=== PATIENT | male | born 1985 | race Hispanic/Latino ===

== ENCOUNTER 2017-05-19 22:52 | Emergency (ER) | payer BC, OTHER ==
[2017-05-20 00:01] LABS: BASO % 0.4 % (0.0-2.0); EOS # 0.2 K/uL (0.0-0.7); EOS % 2.6 % (0.0-4.0); HEMATOCRIT 42.4 % (35.0-51.0); LYMPH # 1.9 K/uL (1.0-4.3); LYMPH % 24.4 % (20.0-40.0); MEAN CELL VOLUME 94.6 fl (80.0-94.0); MEAN CORPUSCULAR HEMOGLOBIN 32.5 pg (27.0-31.0); MEAN CORPUSCULAR HGB CONC 34.3 g/dL (33.0-37.0); MEAN PLATELET VOLUME 7.9 fl (7.2-11.7); MONO # 0.7 K/uL (0.0-0.8); MONO % 8.8 % (0.0-10.0); NEUT % 63.8 % (50.0-75.0); NRBC % 2.3 % (0.0-0.0); RED CELL DISTRIBUTION WIDTH 12.6 % (11.5-14.5); WHITE BLOOD COUNT 7.9 K/uL (4.8-10.8)
[2017-05-20 00:03] VITALS: RESP 17
[2017-05-20 00:10] LABS: ALB/GLOB RATIO 1.3 (1.0-2.1); BILIRUBIN,TOTAL 0.5 mg/dl (0.2-1.3); CALCIUM 9.1 mg/dL (8.4-10.2); CARBON DIOXIDE 22 mmol/L (22-30); CHLORIDE 107 mmol/L (98-107); GFR AFRICAN-AMERICAN > 60; GLUCOSE,RANDOM 95 mg/dL (75-110); SODIUM 141 mmol/l (132-148); TOTAL PROTEIN 8.4 G/DL (6.3-8.2)
[2017-05-20 00:20] LABS: ALKALINE PHOSPHATASE 63 U/L (38-126); ALT/SGPT 63 U/L (21-72); AST/SGOT 42 U/L (17-59); BLOOD UREA NITROGEN 18 mg/dl (9-20); POTASSIUM 3.9 MMOL/L (3.6-5.0)
[2017-05-20] MEDS ORDERED: Iodixanol 320 MG/ML 100 ML BOTTLE IV ONE (00:41)
--- NOTE | 2017-05-20 02:01 | ED PDOC ---
HPI: SOB/CHF/COPD Time Seen by Provider: 05/19/17 22:56 Chief Complaint (Nursing): Shortness Of Breath Chief Complaint (Provider): SOB, difficulty breathing out x 2 months History Per: Patient History/Exam Limitations: no limitations Onset/Duration Of Symptoms: Days, Waxing/Waning Current Symptoms Are (Timing): Still Present Quality: Tightness Current Respiratory Medications: Albuterol (Tooke for 2 weeks, did not help ) Associated Symptoms: denies: Fever, Chills, Sweating, Chest Pain, Productive Cough, Dizziness Additional Complaint(s): Pt was seen by PMD and given albuterol for 2 weeks which did not help. PT had CBC, CMP, DDIMER, HIV, Lyme and Hepatitis labs which were all normal. PT also with normal EKG and CXR. 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 Past Medical History Reviewed: Historical Data, Nursing Documentation, Vital Signs Vital Signs: Last Vital Signs Temp 98.3 F 05/19/17 23:03 Pulse 75 05/19/17 23:03 Resp 17 05/19/17 23:35 BP 152/99 H 05/19/17 23:03 Pulse Ox 98 05/19/17 23:35 - Medical History PMH: No Chronic Diseases - Surgical History Surgical History: No Surg Hx - Family History Family History: States: Unknown Family Hx - Living Arrangements Living Arrangements: With Family - Social History Current smoker - smoking cessation education provided: No - Home Medications Home Medications: Ambulatory Orders Medication Instructions Recorded Ibuprofen [Motrin] 600 mg PO Q6 PRN #20 tab 09/03/14 Oxycodone HCl/Acetaminophen 1 tab PO Q4 #10 tab 09/03/14 [Percocet 325 mg-5 mg] Oxycodone HCl/Acetaminophen 1 tab PO Q4 #10 tab 09/03/14 [Percocet 325 mg-5 mg] diaZEpam [Valium] 5 mg PO BID PRN #10 tab 09/03/14 Oxycodone HCl/Acetaminophen 1 tab PO Q6H PRN #10 tab 09/06/14 [Percocet 325 mg-5 mg] - Allergies Allergies/Adverse Reactions: Allergies Allergy/AdvReac Type Severity Reaction Status Date / Time No Known Allergies Allergy Verified 09/03/14 15:12 Review of Systems ROS Statement: Except As Marked, All Systems Reviewed And Found Negative Constitutional: Negative for: Fever, Chills Respiratory: Positive for: Shortness of Breath Gastrointestinal: Negative for: Nausea, Vomiting, Abdominal Pain Genitourinary Male: Negative for: Dysuria Musculoskeletal: Negative for: Neck Pain Physical Exam - Reviewed Nursing Documentation Reviewed: Yes Vital Signs Reviewed: Yes - Physical Exam Appears: Positive for: Well, Non-toxic, No Acute Distress Head Exam: Positive for: ATRAUMATIC, NORMAL INSPECTION, NORMOCEPHALIC Skin: Positive for: Normal Color, Warm, DRY Eye Exam: Positive for: Normal appearance ENT: Positive for: Normal ENT Inspection Neck: Positive for: Normal, Painless ROM Cardiovascular/Chest: Positive for: Regular Rate, Rhythm Respiratory: Positive for: CNT, Normal Breath Sounds Back: Positive for: Normal Inspection Extremity: Positive for: Normal ROM Neurologic/Psych: Positive for: Alert, Oriented - Laboratory Results Result Diagrams: 05/19/17 23:30 05/19/17 23:30 - ECG O2 Sat by Pulse Oximetry: 98 Disposition - Clinical Impression Clinical Impression: Dyspnea - Disposition Referrals: [facility] [Outside] Jos Villa MD [Staff Provider] - Disposition: Routine/Home Disposition Time: 02:03 Condition: STABLE Instructions: Dyspnea (ED)
[2017-05-20 02:44] VITALS: BP 134/80; PULSE 67; TEMP 98.1; O2SAT 97
--- NOTE | 2017-05-20 05:42 | CT ---
PROCEDURE: CT Chest with contrast (Pulmonary Angiogram) HISTORY: SOB COMPARISON: None available. TECHNIQUE: Axial computed tomography images were obtained of the chest in the pulmonary arterial phase of enhancement. Coronal and sagittal reformatted images were created and reviewed. Intravenous contrast dose: 95 cc Visipaque 320 Radiation dose: Total exam DLP = 434.55 mGy-cm. This CT exam was performed using one or more of the following dose reduction techniques: Automated exposure control, adjustment of the mA and/or kV according to patient size, and/or use of iterative reconstruction technique. FINDINGS: PULMONARY ARTERIES: Unremarkable. No pulmonary embolism. AORTA: No acute findings. No thoracic aortic aneurysm. LUNGS: Unremarkable. No nodule, mass or pulmonary consolidation. PLEURAL SPACES: Unremarkable. No effusion or pneuomothorax. HEART: Unremarkable. No cardiomegaly. No significant pericardial effusion. LYMPH NODES: No lymphadenopathy. BONES, CHEST WALL: Unremarkable. No fracture or destructive lesion OTHER FINDINGS: Unremarkable. IMPRESSION: Unremarkable CT pulmonary angiogram. No pulmonary embolus. Concordant results (preliminary interpretation) provided by [employer]. Procedure Completed: 00:50. Preliminary ([employer]) Report: Dictated and Authenticated: 01:24 Final Interpretation: 05:40. May 20, 2017. 00:51.
--- NOTE | 2017-05-20 12:05 | CARD ---
APPROVED REPORT EKG Measurement Heart [id number] <Conclusion> Normal sinus rhythm Normal ECG
== END 2017-05-20 02:55 | disposition home or self-care (01) ==
LOC: H.ER 22:52
DX: R06.00 Dyspnea, unspecified (principal)
CPT/HCPCS: 71275; 80053; 84484; 85025; 93005; 96374; 99284; J2060; Q9967